=== PATIENT | male | born 1930 | race African-American/Black ===

== ENCOUNTER 2017-05-26 08:31 | Observation (INO) | payer MEDICARE ==
[2017-05-26 09:26] LABS: #Basophils 0.1 thou/uL (0.0-0.2); #Eosinphils 0.2 thou/uL (0.0-0.7); #Lymphocytes 2.1 thou/uL (1.20-3.40); #Monocytes 0.5 thou/uL (0.11-0.59); #Neutrophils 4.7 thou/uL (1.40-6.50); %Basophils 0.9 % (0.0-1.0); %Monocytes 6.1 % (0.0-10.0); %Neutrophils 62.1 % (42.0-75.0); Hemoglobin 14.5 g/dL (14.0-18.0); Mean Corpuscular HGB CONC 32.1 g/dL (32.0-36.0); Mean Corpuscular Hemoglobin 27.1 pg (27.0-31.0); Mean Corpuscular Volume 84.4 fl (80.0-94.0); Mean Platelet Volume 8.9 fL (7.4-10.4); Platelet Count 211 thou/uL (130-400); RBC Distribution Width 13.2 % (11.5-14.5); Red Blood Cell (RBC) Count 5.34 mill/uL (4.70-6.10); White Blood Cell (WBC) Count 7.6 thou/uL (4.8-10.8)
[2017-05-26 09:53] LABS: CKMB 2.6 ng/mL (0-6.6); Troponin I Less than 0.010 ng/mL (< 0.028)
[2017-05-26 09:58] LABS: ALT (SGPT) 16 U/L (8-55); AST (SGOT) 20 U/L (5-34); Albumin 4.1 g/dL (3.4-4.8); Alkaline Phosphatase 55 U/L (40-150); Anion Gap 11 mmol/L (10-20); BUN (Urea Nitrogen) 22 mg/dL (8.4-25.7); Bilirubin, Total 0.6 mg/dL (0.2-1.2); Calc. Creatinine Clearance 0 mL/min (70-130); Calcium 9.4 mg/dL (7.8-10.44); Carbon Dioxide 25 mmol/L (23-31); Chloride 107 mmol/L (98-107); Estimated GFR-MDRD 53; Globulin 2.8 g/dL (2.4-3.5); Glucose 107 mg/dL (83-110); Magnesium 1.9 mg/dL (1.6-2.6); Potassium 4.2 mmol/L (3.5-5.1); Protein, Total 6.9 g/dL (5.8-8.1); Sodium 139 mmol/L (136-145)
--- NOTE | 2017-05-26 11:13 | RAD ---
CHEST 1 VIW: HISTORY: Chest pain. COMPARISON: Syncopal episode. COMPARISON: None. FINDINGS: There is mild elevation of the left hemidiaphragm with compressive atelectasis. There is a faint per ipheral opacity in the right upper lobe also likely atelectasis or scarring. No pneumothorax. No fo ibrahima airspace consolidation. No acute osseous abnormality. IMPRESSION: Chronic findings. No acute intrathoracic abnormality. POS: [facility]
[2017-05-26 11:56] LABS: Bilirubin Negative (Negative); Blood, Urine Negative (Negative); Clarity CLEAR (Clear); Glucose, Urine (Dipstick) Negative (Negative); Leukocyte Negative (Negative); Nitrite Negative (Negative); Protein, Urine (Dipstick) Negative (Neg-Trace); Specific Gravity, Urine 1.014 (1.002-1.036); pH, Urine 6.5 (5.0-9.0)
[2017-05-26] MEDS ORDERED: Sodium Chloride 0.65% Nasal 44 ML BOT EA NARE PRN (13:40)
[2017-05-26] MEDS ORDERED: hydrALAZINE 20 MG/ML VIAL SLOW IVP PRN (13:40)
[2017-05-26] MEDS ORDERED: Milk Of Magnesia 30 ML UDCUP PO PRN (13:40)
[2017-05-26] MEDS ORDERED: Senokot 8.6 MG TAB PO PRN (13:40)
[2017-05-26] MEDS ORDERED: Chloraseptic Spray 180 ml Bottle PO PRN (13:40)
[2017-05-26] MEDS ORDERED: Acetaminophen 325 MG TAB PO PRN (13:40)
[2017-05-26] MEDS ORDERED: Ondansetron HCl/PF 4 MG/2 ML Vial IVP PRN (13:40)
[2017-05-26] MEDS ORDERED: Eucerin (Mineral Oil/Petrolatum,White) 30 gm Jar TOP PRN (13:40)
[2017-05-26] MEDS ORDERED: Zolpidem Tartrate 5 MG TAB PO PRN (13:40)
[2017-05-26] MEDS ORDERED: Nitroglycerin 0.4 MG TAB (25 Tab Bottle) SL PRN (13:40)
[2017-05-26] MEDS ORDERED: Diabetic Tussin 200 MG/10 ML UDCUP PO PRN (13:40)
[2017-05-26] MEDS ORDERED: Mag-Al 1200 mg/1200 mg/30 ML UDCUP PO PRN (13:40)
[2017-05-26] MEDS ORDERED: HYDROcodone/Acetaminophen 5/325 mg Tablet PO PRN (13:40)
[2017-05-26] MEDS ORDERED: Artificial Tears 18 DROP/0.9 ML EA EYE PRN (13:40)
[2017-05-26] MEDS ORDERED: Loratadine 10 MG TAB PO PRN (13:40)
[2017-05-26] MEDS ORDERED: Loperamide HCl 2 MG CAP PO PRN (13:40)
[2017-05-26] MEDS ORDERED: Ondansetron ODT 4 MG TAB PO PRN (13:40)
[2017-05-26] MEDS ORDERED: cloNIDine 0.1 MG TAB PO PRN (13:50)
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
[2017-05-26] MEDS: hydrALAZINE 25 MG TAB PO SCH ×2 (14:46→20:27)
--- NOTE | 2017-05-26 16:03 | ULT ---
BILATERAL CAROTID DOPPLER ULTRASOUND: History: Syncope. Comparison: None. Technique: Real-time grayscale, color, and spectral analysis of the extracranial carotid arteries and vertebral arteries were performed. FINDINGS: Antegrade flow of the vertebral arteries. There is increased velocity throughout the internal carotid artery on the left reaching 290 cm/sec with PS/ED ratio of 4.5. Right internal carotid velocities ar e normal. IMPRESSION: High grade, greater than 70%, stenosis of the left internal carotid artery. CT angiogram recommended. CODE: T POS: [facility]
[2017-05-26 16:19] LABS: Troponin I Less than 0.010 ng/mL (< 0.028)
[2017-05-26] MEDS: Mometasone/Formoterol 120 PUFF INHALER INH SCH (18:58)
[2017-05-26 19:03] LABS: Troponin I Less than 0.010 ng/mL (< 0.028)
[2017-05-26] MEDS: Famotidine 20 MG TAB PO SCH (20:27)
[2017-05-26] MEDS ORDERED: Atorvastatin Calcium 40 MG TAB PO SCH (21:00)
[2017-05-27] MEDS: Mometasone/Formoterol 120 PUFF INHALER INH SCH (08:00)
[2017-05-27] MEDS ORDERED: Tamsulosin HCl 0.4 MG CAP PO SCH (09:00)
[2017-05-27] MEDS ORDERED: Lisinopril/Hydrochlorothiazide 20 mg/12.5 mg Tablet PO SCH (09:00)
[2017-05-27] MEDS ORDERED: Multivitamin W/ Minerals 1 TAB PO SCH (09:00)
--- NOTE | 2017-05-27 09:11 | CT ---
CT ANGIO NECK WITH CONTRAST: Date: 05/27/17 TECHNIQUE: Multiple axial tomograms obtained through the neck with IV enhancement in the angiogram phase with mu ltiplanar reconstruction and 3D postprocessing. INDICATION: Carotid stenosis. Recent carotid ultrasound exam from 05/26/17 revealed evidence of significant steno sis in the left internal carotid artery. FINDINGS: There is no evidence of stenosis at the origin of the arch vessels. There is a common origin of the l eft common carotid and innominate artery. The left common carotid artery is unremarkable with mild atherosclerotic change. No stenosis in the l eft common carotid artery. There is atherosclerotic change seen at the left carotid bifurcation and left bulb and proximal ICA. Soft plaque and mild calcified plaque is present. There is high grade stenosis in the proximal left I CA beginning at its origin. The degree of stenosis appears 80% or greater according to NASCET criteri a. The left ICA above the bulb is unremarkable. There is atherosclerotic change seen in the cavernous si nus portion of left ICA; however, no focal stenosis. The right common carotid artery is unremarkable with no stenosis. There is atherosclerotic change in the right bulb and proximal right ICA. There is an area of dense calcified plaque in the right ICA ab ove this origin. There is high grade stenosis at this area of densely calcified plaque. The degree of stenosis appears critical and may approach 90% or greater at a tiny focus just beyond the densely ca lcified plaque. The ICA above this area of stenosis on the right appears unremarkable. The vertebral arteries are patent and appear unremarkable. There is a 1.5 cm low density nodule in the right lobe of the thyroid. IMPRESSION: 1. Evidence of critical stenosis in the right internal carotid artery above the bulb at a focus of d ensely calcified plaque. 2. Evidence of high grade stenosis in the proximal left ICA at its origin. CODE T. POS: [facility]
[2017-05-27] MEDS ORDERED: ISOVUE-370 76%-LOCM 1 ML ONE (09:26)
--- NOTE | 2017-05-27 10:10 | PDOC.PN ---
- Subjective Encounter Start Date: 05/27/17 Encounter Start Time: 07:30 -: old records requested/rev Patient seen and examined. No new complaints. No overnight events - Objective Resuscitation Status: Resuscitation Status FULL:Full Resuscitation MAR Reviewed: Yes Vital Signs & Weight: Vital Signs (12 hours) Temp Pulse Resp BP BP BP BP 05/27/17 08:02 98.0 F 50 L 24 H 169/78 H 05/27/17 08:00 60 16 05/27/17 07:34 98.5 F 61 16 05/27/17 04:24 185/88 H 05/27/17 04:01 98.5 F 61 16 187/72 H 185/88 H 201/88 H Pulse Ox 05/27/17 08:02 97 05/27/17 08:00 95 05/27/17 07:34 05/27/17 04:24 05/27/17 04:01 97 Weight Weight 189 lb I&O: 05/26/17 05/27/17 05/28/17 06:59 06:59 06:59 Intake Total 1080 Output Total 0 Balance 1080 Result Diagrams: 05/26/17 09:15 05/26/17 09:15 Radiology Reviewed by me: Yes (carotid us and ct angio neck) EKG Reviewed by me: Yes Phys Exam - Physical Examination Constitutional: NAD HEENT: PERRLA, moist MMs, sclera anicteric Neck: no JVD, supple Respiratory: no wheezing, no rales, no rhonchi Cardiovascular: RRR, no significant murmur, no rub Gastrointestinal: soft, non-tender, no distention, positive bowel sounds Musculoskeletal: no edema, pulses present Neurological: non-focal, normal sensation, moves all 4 limbs Lymphatic: no nodes Psychiatric: normal affect, A&O x 3 Skin: no rash, normal turgor Dx/Plan (1) Syncope Code(s): R55 - SYNCOPE AND COLLAPSE Status: Acute (2) BPH (benign prostatic hyperplasia) Code(s): N40.0 - BENIGN PROSTATIC HYPERPLASIA WITHOUT LOWER URINRY TRACT SYMP Status: Chronic (3) CKD (chronic kidney disease) stage 3, GFR 30-59 ml/min Code(s): N18.3 - CHRONIC KIDNEY DISEASE, STAGE 3 (MODERATE) Status: Chronic (4) Carotid stenosis, left Code(s): I65.22 - OCCLUSION AND STENOSIS OF LEFT CAROTID ARTERY Status: Chronic (5) Dyslipidemia Code(s): E78.5 - HYPERLIPIDEMIA, UNSPECIFIED Status: Chronic (6) Hypertension Code(s): I10 - ESSENTIAL (PRIMARY) HYPERTENSION Status: Chronic - Plan cont current plan of care, plan discussed w/ family * carotid doppler noted and then CT angio done * now consulted CT surgeon to decide if CEA needed or not * discharge decision pending consult recommendation * medication reviewed as below * symptomatic treatment Review of Systems - Review of Systems ENT: negative: Ear Pain, Ear Discharge, Nose Pain, Nose Discharge, Nose Congestion, Mouth Pain, Mouth Swelling, Throat Pain, Throat Swelling, Other Respiratory: negative: Cough, Dry, Shortness of Breath, Hemoptysis, SOB with Excertion, Pleuritic Pain, Sputum, Wheezing Cardiovascular: negative: chest pain, palpitations, orthopnea, paroxysmal nocturnal dyspnea, edema, light headedness, other Gastrointestinal: negative: Nausea, Vomiting, Abdominal Pain, Diarrhea, Constipation, Melena, Hematochezia, Other Genitourinary: negative: Dysuria, Frequency, Incontinence, Hematuria, Retention , Other Musculoskeletal: negative: Neck Pain, Shoulder Pain, Arm Pain, Back Pain, Hand Pain, Leg Pain, Foot Pain, Other Skin: negative: Rash, Lesions, Jorge Luis, Bruising, Other - Medications/Allergies Allergies/Adverse Reactions: Allergies Allergy/AdvReac Type Severity Reaction Status Date / Time No Allergy Information Allergy Verified 05/26/17 20:27 Available Medications: Current Medications Acetaminophen (Tylenol) 650 mg PO Q4H PRN PRN Reason: Headache/Fever or Pain Hydrocodone Bitart/Acetaminophen (Dellrose 5/325) 1 tab PO Q4H PRN PRN Reason: Moderate Pain (4-6) Al Hydroxide/Mg Hydroxide (Maalox) 30 ml PO Q6H PRN PRN Reason: Heartburn or Indigestion Artificial Tears (Tears Naturale) 0 drop EA EYE PRN PRN PRN Reason: Dry Eyes Aspirin (Aspirin Chewable) 81 mg PO DAILY RENEE Atorvastatin Calcium (Lipitor) 40 mg PO HS RENEE Last Admin: 05/26/17 20:27 Dose: 40 mg Clonidine (Catapres) 0.1 mg PO Q4H PRN PRN Reason: SBP Greater Than 180 Last Admin: 05/27/17 04:24 Dose: 0.1 mg Famotidine (Pepcid) 20 mg PO BID [facility] Last Admin: 05/26/17 20:27 Dose: 20 mg Guaifenesin (Robitussin Sf) 200 mg PO Q4H PRN PRN Reason: Cough Lisinopril/HCTZ (Prinizide 20-12.5) 1 tab PO DAILY [facility] Hydralazine HCl (Apresoline) 10 mg SLOW IVP Q4H PRN PRN Reason: Systolic BP > 180 Hydralazine HCl (Apresoline) 25 mg PO TID [facility] Last Admin: 05/26/17 20:27 Dose: 25 mg Iron/Minerals/Multivitamins (Theragran M) 1 tab PO DAILY [facility] Loperamide HCl (Imodium) 2 mg PO PRN PRN PRN Reason: Diarrhea/Loose Stools Loratadine (Claritin) 10 mg PO DAILYPRN PRN PRN Reason: Sinus Symptoms Magnesium Hydroxide (Milk Of Magnesium) 30 ml PO DAILYPRN PRN PRN Reason: Constipation Mineral Oil/White Petrolatum (Eucerin Cream) 0 gm TOP BIDPRN PRN PRN Reason: Dry Skin Mometasone Furoate/Formoterol Fumar (Dulera 200 Mcg/5 Mcg Inhaler) 2 puff INH BID-RT [facility] Last Admin: 05/27/17 08:00 Dose: 2 puff Nitroglycerin (Nitrostat) 0.4 mg SL Q5MIN PRN PRN Reason: Chest Pain Ondansetron HCl (Zofran Odt) 4 mg PO Q6H PRN PRN Reason: Nausea/Vomiting Ondansetron HCl (Zofran) 4 mg IVP Q6H PRN PRN Reason: Nausea/Vomiting Phenol (Chloraseptic [place] 180 Ml Bot) 0 ml PO PRN PRN PRN Reason: Sore Throat Senna (Senokot) 2 tab PO HSPRN PRN PRN Reason: Constipation Sodium Chloride ([place] Nasal [place] 0.65%) 0 ml EA NARE QIDPRN PRN PRN Reason: Nasal Congestion Sodium Chloride (Flush - Normal Saline) 10 ml IVF Q12HR [facility] Last Admin: 05/26/17 20:27 Dose: 10 ml Sodium Chloride (Flush - Normal Saline) 10 ml IVF PRN PRN PRN Reason: Saline Flush Tamsulosin HCl (Flomax) 0.4 mg PO DAILY RENEE Zolpidem Tartrate (Ambien) 5 mg PO HSPRN PRN PRN Reason: Insomnia
[2017-05-27] MEDS: Famotidine 20 MG TAB PO SCH (11:21)
[2017-05-27] MEDS: hydrALAZINE 25 MG TAB PO SCH ×2 (11:21→17:21)
[2017-05-27 13:38] VITALS: BMI 27.1
--- NOTE | 2017-05-27 14:18 | DIS ---
DATE OF ADMISSION: 05/26/2017 DATE OF DISCHARGE: 05/27/2017 PRIMARY CARE PHYSICIAN: Lelo garcia. DISCHARGE DISPOSITION: Home. PRIMARY DISCHARGE DIAGNOSES: 1. Syncope. 2. Left carotid stenosis. SECONDARY DISCHARGE DIAGNOSES: Hypertension, dyslipidemia, chronic kidney disease stage 3 and benign enlargement of prostate. PRIMARY PROCEDURE/OPERATION: None. RADIOLOGICAL INVESTIGATION: Chest x-ray normal. Carotid Doppler showed high-grade, greater than 70% stenosis in the left internal carotid artery. CT angiography showed critical stenosis in the right internal carotid artery as well as high-grade stenosis in the left internal carotid artery. SIGNIFICANT LABORATORY DATA: CBC normal. BMP normal. Creatinine 1.50. LFT normal. Cardiac enzyme s negative. Urinalysis normal. DISCHARGE MEDICATIONS: Vitamin C 500 mg p.o. at bedtime, Lipitor 40 mg p.o. at bedtime, aspirin 81 m g p.o. daily, Catapres 0.1 mg p.o. b.i.d., Avodart 0.5 mg p.o. at bedtime, Prinzide 20/12.5 one table t p.o. at bedtime, metoprolol 25 mg p.o. b.i.d., multivitamin 1 tablet p.o. daily, Flomax 0.4 mg p.o. at bedtime and multivitamin 1 tablet p.o. daily. CONTRAINDICATIONS: None. CODE STATUS: FULL CODE. INPATIENT ANESTHESIOLOGY TECHNOLOGIST: Dr. Butler, CT surgeon was consulted while in hospital. TEST RESULTS PENDING ON DISCHARGE: Echocardiography. DISCHARGE PLAN: Post hospital, the patient will follow up with software qa system specialist as well as primary care physician and Dr. Butler, for carotid endarterectomy. HOSPITAL COURSE: An 87-year-old male who was admitted by me. Please see my HPI for further details. This patient was having syncopal episode at [facility]anda[place] that was witnessed, but not explained. In the e mergency room, he was completely fine. His vitals were showing hypertensive urgency. We kept in hos pital for observation and we did syncope workup with carotid Doppler, which showed carotid stenosis a nd subsequently carotid stenosis was confirmed with CT angiography, which showed both carotid stenosi s and that is why we consulted CT surgeon and they recommended that patient will need outpatient eval uation and treatment with a carotid endarterectomy. The patient has agreed with this plan. All test results discussed with the patient and family member. The patient is seen and examined at t he bedside today. Please see my progress note from today. As cardiovascular surgeon cleared him for discharge, we are discharging this patient to home and he will follow up with the patient as an outp atient basis.
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
[2017-05-27 15:46] VITALS: BP 128/62; TEMP 98.5
--- NOTE | 2017-06-01 20:42 | EKG ---
Test Reason : Blood Pressure : / mmHG Vent. Rate : 045 BPM Atrial Rate : 045 BPM P-R Int : 178 ms QRS Dur : 088 ms QT Int : 500 ms P-R-T Axes : 026 041 105 degrees QTc Int : 432 ms Sinus bradycardia Minimal voltage criteria for LVH, may be normal variant T wave abnormality, consider lateral ischemia Abnormal ECG Confirmed by HI RIZZO ([id number]), news editor NELSON ART ([id number]) on 06/01/2017 8:41:20 PM Referred By: Confirmed By:HI RIZZO
== END 2017-05-27 18:22 | disposition home or self-care (01) ==
LOC: ERS 08:31 → 2SW 12:59
PROVIDERS: ADMIT Internal Medicine; ATTEND Internal Medicine
DX: R55 Syncope and collapse (principal); I65.22 Occlusion and stenosis of left carotid artery; N40.0 Benign prostatic hyperplasia without lower urinary tract symptoms; E78.5 Hyperlipidemia, unspecified; I12.9 Hypertensive chronic kidney disease with stage 1 through stage 4 chronic kidney disease, or unspecified chronic kidney disease; N18.3 Chronic kidney disease, stage 3 (moderate); I16.0 Hypertensive urgency; G47.00 Insomnia, unspecified; J44.9 Chronic obstructive pulmonary disease, unspecified; Z79.82 Long term (current) use of aspirin; Z79.899 Other long term (current) drug therapy
CPT/HCPCS: 70498; 71045; 80053; 81003; 82553; 83735; 84484 ×2; 85025; 93005; 93306; 93880; 94640 ×2; 97139; 99285; G0378; 36415; A4216

== ENCOUNTER 2017-08-05 13:30 | Inpatient (IN) | payer MEDICARE ==
[2017-08-06] MEDS ORDERED: CEFAZOLIN/Water 2 GM/20 ML SYRINGE ONE (12:33)
[2017-08-06] MEDS ORDERED: Midazolam HCl 2 mg/2 ml Vial ONE (12:59)
[2017-08-06] MEDS ORDERED: Fentanyl 250 MCG/5 ML VIAL ONE (12:59)
[2017-08-06] MEDS ORDERED: Heparin 5,000 UNITS/ML VIAL ONE (13:05)
[2017-08-06] MEDS ORDERED: Protamine Sulfate 50 MG/5 ML VIAL ONE (13:05)
[2017-08-06] MEDS ORDERED: HYDROcodone/Acetaminophen 5/325 mg Tablet PO PRN ×2 (13:31)
[2017-08-06] MEDS ORDERED: Acetaminophen 325 MG TAB PO PRN (13:31)
[2017-08-06] MEDS ORDERED: Ondansetron HCl/PF 4 MG/2 ML Vial IVP PRN ×2 (13:31→15:34)
[2017-08-06] MEDS ORDERED: Lidocaine 1% PF 5 ML VIAL ONE (13:34)
[2017-08-06] MEDS ORDERED: PROPOFOL 200 MG/20 ML VIAL ONE (13:34)
[2017-08-06] MEDS ORDERED: Glycopyrrolate 0.2 MG/ML 5 ML SYRINGE ONE (13:34)
[2017-08-06] MEDS ORDERED: PHENYLEPHRINE-NS 100 MCG/ML 10 ML SYRINGE ONE (13:34)
[2017-08-06] MEDS ORDERED: Labetalol 100 MG/20 ML MDV ONE (13:34)
[2017-08-06] MEDS ORDERED: ePHEDrine/0.9% NaCl/PF SYRINGE 50 mg/10 ml ONE (13:34)
[2017-08-06] MEDS ORDERED: Heparin 10,000 UNITS/ 10 ML VIAL ONE (13:34)
[2017-08-06] MEDS ORDERED: Promethazine HCl 25 MG/ML VIAL SLOW IVP PRN (15:34)
[2017-08-06] MEDS ORDERED: Promethazine HCl 25 MG/ML VIAL IM PRN (15:34)
[2017-08-06] MEDS ORDERED: EPINEPHrine 1 MG/ML AMP ONE (15:55)
[2017-08-06] MEDS ORDERED: Nitroglycerin 50 MG/250 ML BOT 250 ML ONE (16:02)
[2017-08-06] MEDS ORDERED: Enalaprilat Dihydrate 1.25 MG/ML VIAL ONE (16:04)
[2017-08-06 18:04] VITALS: BMI 27.6
[2017-08-06] MEDS: Sodium Chloride 0.9% 1,000 ML IV SCH (18:30)
[2017-08-06] MEDS ORDERED: Enalaprilat Dihydrate 1.25 MG/ML VIAL SLOW IVP PRN (20:12)
[2017-08-06] MEDS ORDERED: hydrALAZINE 20 MG/ML VIAL SLOW IVP PRN (20:12)
[2017-08-06] MEDS: cloNIDine 0.1 MG TAB PO SCH (20:38)
[2017-08-06] MEDS ORDERED: Ascorbic Acid 500 mg Chewable Tablet PO SCH (21:00)
[2017-08-06] MEDS ORDERED: Tamsulosin HCl 0.4 MG CAP PO SCH (21:00)
[2017-08-06] MEDS ORDERED: Lisinopril/Hydrochlorothiazide 20 mg/12.5 mg Tablet PO SCH (21:00)
[2017-08-06] MEDS ORDERED: Dutasteride 0.5 MG CAP PO SCH (21:00)
[2017-08-06] MEDS ORDERED: PROVENTIL INHALER 6.7 G (200 INHALATIONS) INH SCH (21:00)
--- NOTE | 2017-08-06 23:10 | OP ---
DATE OF PROCEDURE: 08/06/2017 PROCEDURE PERFORMED: Right carotid endarterectomy. PREOPERATIVE DIAGNOSIS: Bilateral carotid stenosis, right worse than left. POSTOPERATIVE DIAGNOSIS: Bilateral carotid stenosis, right worse than left. SURGEON: Jonathon Butler MD ANESTHESIA: General endotracheal anesthesia. INDICATIONS: The patient is a fairly vigorous 87-year-old man, found to have high-grade bilateral ca rotid stenoses when he presented with syncope associated with slow heart rates. His presyncopal symp toms resolved with removal of beta blockers and his heart rate came up into the 70s. He had no focal symptoms, but was deemed viable candidate and his carotid disease sufficiently severe to warrant, en darterectomy in the asymptomatic setting. FINDINGS: Plaque at the bulb and internal carotid stenosis with a focal subtotal lesion in the dista l internal carotid. PRE-SHUNT CLAMP TIME: 9 minutes. SHUNT TIME: 25 minutes. POST-SHUNT CLAMP TIME: 3 minutes. NARRATIVE REPORT: After informed consent was obtained, the patient was taken to the operating room, placed in supine position on the operating table. After the induction of general anesthesia, the pat ient's neck was extended and rotated towards the left. His right neck was then prepped and draped in sterile fashion. An oblique incision was made in the skin crease on the right neck using a scalpel and electrocautery. The dissection was carried through the subcutaneous tissue and platysma, anterom edial to the sternocleidomastoid muscle and internal jugular vein. The common carotid artery was dis sected free from that sheath and the vagus nerve and looped with a vessel loop. The dissection was c arried cephalad. The external carotid system was looped and mass with a vessel loop. The sling vess els and venous tributaries to the jugular system crossing the operative field were ligated and divide d. The dissection was carried well beyond the level of the hypoglossal nerve and digastric muscle in order to mobilize and expose the internal carotid artery beyond the palpable plaque. After adequate circulation time of heparin, the internal carotid, common carotid, and external carotid systems were sequentially occluded. A longitudinal arteriotomy was made in the distal common carotid artery and extended proximally and distally with Ross scissors. An endarterectomy plane was developed at the b [facility], plaque was transected the common carotid level, everted from the external carotid system, and br oken off distally in the internal carotid. The distal feather was tailored. The endarterectomy bed was forcefully irrigated, paying particular attention to the proximal transection and distal feather points. The distal feather tailoring was completed and then an intraluminal carotid shunt was insert ed first distally in the internal carotid and then proximally in the common carotid and aspirating on the side port of the shunt before allowing antegrade flow through it into the internal carotid syste m. The endarterectomy bed was then serially debrided, irrigated, and inspected until no more mobile debris remained. The arteriotomy was then closed from either apex with running 6-0 Prolene suture wi th about a centimeter of arteriotomy left so at the common carotid level. Shunt was clamped and otto jerod and vascular control was reestablished on the origin of the internal carotid and on the common ca rotid with vascular tapes. The remaining arteriotomy was found. The vessels are forward and backble d to allow for flushing of any air or residual debris or at the arteriotomy or into the external an tid system. The suture line was secure and antegrade flows allowed first into the external carotid a nd then into the internal carotid. The suture line was inspected for hemostasis, which appeared to b e adequate. The wound was packed off with a Ray-Kristina sponge. After a few minutes, it was reinspected . There was some bleeding coming from a small vein superolaterally in the dissection bed that was co ntrolled with Hemoclips. Hemostasis was then adequate without the reversal of heparin. The platysma was reapproximated with running 3-0 Vicryl and the skin was closed with a 5-0 Vicryl subcuticular yang ture and Steri-Strips. The wound was dressed and the patient was taken to the recovery area in stabl e condition.
[2017-08-07] MEDS: Sodium Chloride 0.9% 1,000 ML IV SCH (04:14)
--- NOTE | 2017-08-07 07:19 | DIS ---
DATE OF ADMISSION: 08/06/2017 DATE OF DISCHARGE: 08/07/2017 PRINCIPAL DIAGNOSIS: Bilateral carotid stenosis, right worse than left SECONDARY DIAGNOSIS: Hypertension. PROCEDURES: Right carotid endarterectomy. HISTORY OF PRESENT ILLNESS/HOSPITAL COURSE: The patient is a fairly vigorous 87-year-old man who had had a history of some presyncopal episodes and while visiting family had a syncopal episode in [facility] without any prodromal symptoms or any localizing symptoms. He was rather bradycardic on initial ev aluation and upon discontinuation of the beta blockers that have been used for hypertension his heart rates came up and his presyncopal and syncopal symptoms resolved. During the course of his evaluati on, though, he was found to have bilateral high grade carotid stenoses that were asymptomatic. His r ight side was worse than his left. Upon discussions with him and his family, it was felt that he was a reasonable candidate for staged bilateral carotid endarterectomies in spite of his asymptomatic st atus. He was admitted electively for a right carotid endarterectomy. Although the patient was marke dly hypertensive when he initially came out of anesthesia, once that was brought under control his bl ood pressure remained under adequate control. His initial confusion coming out of anesthesia also re solved and today on postoperative day #1, his only complaints are that of sore throat. Otherwise, he is breathing and swallowing without difficulty. His blood pressure has been under adequate control. His tongue is midline. His voice is normal. There is no significant swelling associated with his wound. His smile is symmetric. He moves all extremities to command. He will be discharged home now with a prescription for Vicodin as needed for pain and resume his home medications which include an aspirin a day. I will plan on seeing him in the office in roughly 2-3 weeks' time and when he has ad equately recovered from this procedure, we will plan on left carotid endarterectomy.
[2017-08-07 08:17] VITALS: TEMP 97.9
[2017-08-07] MEDS: cloNIDine 0.1 MG TAB PO SCH (08:24)
[2017-08-07 08:26] VITALS: BP 134/51
[2017-08-07] MEDS ORDERED: Multivit, Therapeutic 1 TAB PO SCH (09:00)
[2017-08-07] MEDS ORDERED: INTRINSIC FACT PO SCH (09:00)
[2017-08-07] MEDS ORDERED: Atorvastatin Calcium 40 MG TAB PO SCH (09:00)
[2017-08-07] MEDS ORDERED: FOLATE PO SCH (09:00)
[2017-08-07] MEDS ORDERED: VIT B12 PO SCH (09:00)
== END 2017-08-07 11:00 | disposition home or self-care (01) | DRG 39 ==
LOC: UNDOADMIN 08-06 05:32 → SURG A 08-06 05:32 → CCU 08-06 17:30
PROVIDERS: ADMIT Thoracic Surgery (Cardiothoracic Vascular Surgery); ATTEND Thoracic Surgery (Cardiothoracic Vascular Surgery)
PROC: 03CK0ZZ Extirpation of Matter from Right Internal Carotid Artery, Open Approach (ICD-10-PCS; principal; 2017-08-06)
DX: I65.23 Occlusion and stenosis of bilateral carotid arteries (principal); I10 Essential (primary) hypertension; N40.0 Benign prostatic hyperplasia without lower urinary tract symptoms; Z79.82 Long term (current) use of aspirin; Z79.899 Other long term (current) drug therapy
CPT/HCPCS: 80048; 85027; 93005; 93010; 94640; J0171; J1642; J1644; J2001; J2250; J2704; J2720; J3010; J7620

== ENCOUNTER 2017-11-05 15:15 | Inpatient (IN) | payer MEDICARE ==
[2017-11-06] MEDS ORDERED: Fentanyl 100 MCG/2 ML VIAL ONE (06:40)
[2017-11-06] MEDS ORDERED: Protamine Sulfate 50 MG/5 ML VIAL ONE (06:41)
[2017-11-06] MEDS ORDERED: Heparin 5,000 UNITS/ML VIAL ONE (06:41)
[2017-11-06] MEDS ORDERED: Protamine Sulfate 250 MG/25 ML VIAL ONE (06:41)
[2017-11-06] MEDS ORDERED: Promethazine HCl 25 MG/ML VIAL IM PRN (07:33)
[2017-11-06] MEDS ORDERED: Acetaminophen 325 MG TAB PO PRN (07:33)
[2017-11-06] MEDS ORDERED: HYDROcodone/Acetaminophen 5/325 mg Tablet PO PRN (07:33)
[2017-11-06] MEDS ORDERED: Ondansetron HCl/PF 4 MG/2 ML Vial IVP PRN (07:33)
[2017-11-06] MEDS ORDERED: PHENYLEPHRINE-NS 100 MCG/ML 10 ML SYRINGE ONE (07:53)
[2017-11-06] MEDS ORDERED: Lidocaine 1% (PF) 30 ML VIAL ONE (08:05)
[2017-11-06] MEDS ORDERED: Tamsulosin HCl 0.4 MG CAP PO SCH ×3 (10:00→21:00)
[2017-11-06] MEDS: Multivit, Therapeutic 1 TAB PO SCH (12:00)
[2017-11-06] MEDS: Atorvastatin Calcium 40 MG TAB PO SCH (12:00)
[2017-11-06] MEDS: cloNIDine 0.1 MG TAB PO SCH ×2 (13:18→20:57)
--- NOTE | 2017-11-06 13:19 | OP ---
DATE OF PROCEDURE: 11/06/2017 PROCEDURE PERFORMED: Left carotid endarterectomy. PREOPERATIVE DIAGNOSIS: Left carotid stenosis. POSTOPERATIVE DIAGNOSIS: Left carotid stenosis. SURGEON: Dr. Butler. ANESTHESIA: General endotracheal anesthesia. INDICATIONS: The patient is an active 87-year-old man who lives independently. Bilateral carotid st enosis was identified during the evaluation of syncope that proved to be related to symptomatic gisselle cardia and resolved with adjustment of his medications. After discussing treatment options with him, it was opted to proceed with staged bilateral carotid endarterectomies even though he was asymptomat ic. Given his overall good health, independent lifestyle and high grade nature of his stenoses, he i s adequately recovered from his right carotid endarterectomy to treat his more stenotic vessel. He i s now taken to the operating room for a left carotid endarterectomy. FINDINGS: Heavy ulcerated plaque at the carotid bulb and proximal internal carotid that was associat ed with high-grade stenosis. There was good ICA backbleeding. Preshunt clamp time was 10 minutes. Shunt time was 20 minutes. Post-shunt clamp time 7 minutes. NARRATIVE REPORT: After informed consent was obtained, the patient was taken to the operating room a nd placed in the supine position on the operating table. After the induction of general anesthesia, the patient's neck was extended and rotated towards the right. His left neck was then prepped and dr aped in sterile fashion. An oblique incision was made in the skin crease on the left neck using a sc alpel and electrocautery. The dissection was carried through the subcutaneous tissue, platysma anter omedial to the sternocleidomastoid muscle and the internal jugular vein. The common carotid artery w as dissected free from that sheath and the vagus nerve and looped with a vessel loop. The venous tri butaries of the jugular system including the facial vein that crossed the operative field were ligate d and divided and the dissection was carried distally beyond the level of the digastric muscle and hy poglossal nerve. The sling vessels and hence cervical callus were divided to allow for adequate expo sure of the internal carotid artery without undue to traction on the hypoglossal nerve. The external carotid and superior thyroidal arteries were looped in masses with a vessel loop. The bulb and inte rnal carotid were isolated, freeing them from the vagus nerve. The patient was heparinized. After a dequate circulation time of heparin, the internal carotid, common carotid, and external carotid syste ms were sequentially occluded. A longitudinal arteriotomy was made in the distal common carotid cristy ry with an 11 blade scalpel. It was extended proximally and distally with Ross scissors. An endart erectomy plane was developed at the bulb, plaque was transected at the common carotid with scissors. It was everted from the external carotid system and broken off distally in the internal carotid. Th e distal feather required extensive tailoring including using [place] scissors in order to achieve a n adequate feather prior to inserting the shunt. The endarterectomy bed was forcefully irrigated pay ing particular attention to that distal feather into the proximal transection point and intraluminal carotid shunt was inserted first distally in the internal carotid and then proximally in the common c arotid aspirating on a side port of the shunt for allowing antegrade flow through it into the interna l carotid system. There was some mild backbleeding around the distal limb of the shunt, which was ea sily controlled with suction. The endarterectomy bed was then serially irrigated, inspected and debr ided until no more mobile debris remained. The arteriotomy was then sewn from either apex with runni ng 6-0 Prolene suture with about a 0.5 cm of arteriotomy left, so shunt was clamped and removed and v ascular control reestablished on the internal carotid at its origin and on the common carotid vessel loops. The remaining arteriotomy was sewn. The vessels were forward and backbled to allow for flush ing of any air or residual debris out the arteriotomy or into the external carotid system. The sutur e line was secured and antegrade flow is allowed first into the external carotid and then into the in ternal carotid. The wound was inspected for gross hemostasis, which appeared to be adequate. It was then packed off with Surgicel and a Ray-Kristina sponge. After about 5 minutes, the packing was removed and the wound reinspected. Hemostasis appeared to be adequate without the reversal of heparin. The platysma was reapproximated with running 3-0 Vicryl and the skin was closed with a running 4-0 Vicryl , subcuticular suture and Steri-Strips. The wound was dressed. The patient was awakened in the oper ating room and taken to the recovery area in stable condition, moving all extremities.
[2017-11-06] MEDS: Sodium Chloride 0.9% 1,000 ML IV SCH ×2 (13:36→21:19)
[2017-11-06 13:48] VITALS: BMI 28.3
[2017-11-06] MEDS: hydrALAZINE 20 MG/ML VIAL SLOW IVP PRN (20:52)
[2017-11-06] MEDS ORDERED: Ascorbic Acid 500 mg Chewable Tablet PO SCH (21:00)
[2017-11-06] MEDS ORDERED: Lisinopril/Hydrochlorothiazide 20 mg/12.5 mg Tablet PO SCH (21:00)
[2017-11-06] MEDS ORDERED: PROVENTIL INHALER 6.7 G (200 INHALATIONS) INH SCH (21:00)
[2017-11-06] MEDS ORDERED: Dutasteride 0.5 MG CAP PO SCH (21:00)
[2017-11-06] MEDS: HYDROcodone/Acetaminophen 5/325 mg Tablet PO PRN (22:29)
[2017-11-07] MEDS: hydrALAZINE 20 MG/ML VIAL SLOW IVP PRN (02:38)
[2017-11-07] MEDS: Sodium Chloride 0.9% 1,000 ML IV SCH (05:44)
[2017-11-07] MEDS: HYDROcodone/Acetaminophen 5/325 mg Tablet PO PRN (06:01)
--- NOTE | 2017-11-07 07:17 | DIS ---
DATE OF ADMISSION: 11/06/2017 DATE OF DISCHARGE: 11/07/2017 PRINCIPAL DIAGNOSIS: Left carotid stenosis. SECONDARY DIAGNOSES: Hypertension and benign prostatic hypertrophy. PROCEDURE PERFORMED: Left carotid endarterectomy. HISTORY OF PRESENT ILLNESS AND HOSPITAL COURSE: The patient is an 87-year-old man who remains active and lives independently. Last , he had a syncopal episode that probably related to symptomati c bradycardia that has since resolved with discontinuation of his beta blockers. During that hospita lization, his evaluation included carotid studies that demonstrated significant bilateral carotid irving noses. He underwent a right carotid endarterectomy last summer with the only issue of now being retu rned to the hospital for urinary retention. He is now sufficiently recovered from his right carotid endarterectomy, did undergo a left carotid endarterectomy. A Garcia catheter was placed intraoperativ marjan and left in place overnight and removed the following morning. He did have a little bit of blood that ooze through the wound into the dressing and had some mild neck swelling associated with that, but the neck remains reasonably soft and he had no changes in his voice difficulties, swallowing or d ifficulty breathing. His tongue is midline. His smile is symmetric and he is able to move all extre mities normally. He will be discharged home now after he passes a voiding trial.
[2017-11-07] MEDS: Multivit, Therapeutic 1 TAB PO SCH (08:44)
[2017-11-07] MEDS: Atorvastatin Calcium 40 MG TAB PO SCH (08:44)
[2017-11-07] MEDS: cloNIDine 0.1 MG TAB PO SCH (08:45)
[2017-11-07 08:46] VITALS: BP 98/38
[2017-11-07] MEDS ORDERED: Cyanocobalamin (Vitamin B-12) 1,000 MCG TAB PO SCH (09:00)
[2017-11-07 13:12] VITALS: TEMP 98.3
[2017-11-07] MEDS ORDERED: Milk Of Magnesia 30 ML UDCUP PO PRN (15:25)
[2017-11-07] MEDS ORDERED: Milk Of Magnesia 30 ML UDCUP PO SCH (15:30)
== END 2017-11-07 19:50 | disposition home or self-care (01) | DRG 39 ==
LOC: SURG A 11-06 05:53 → CCU 11-06 11:54
PROVIDERS: ADMIT Thoracic Surgery (Cardiothoracic Vascular Surgery); ATTEND Thoracic Surgery (Cardiothoracic Vascular Surgery)
PROC: 03CL0ZZ Extirpation of Matter from Left Internal Carotid Artery, Open Approach (ICD-10-PCS; principal; 2017-11-06)
DX: I65.23 Occlusion and stenosis of bilateral carotid arteries (principal); I10 Essential (primary) hypertension; N40.0 Benign prostatic hyperplasia without lower urinary tract symptoms; Z79.82 Long term (current) use of aspirin
CPT/HCPCS: 71046; 80048; 85027; 93005; 93010; 94640; A4216; J0360; J1642; J1644; J2001; J2720; J3010; J7620

== ENCOUNTER 2017-11-05 15:23 | Outpatient (CLI) | payer MEDICARE ==
[2017-11-05 16:24] LABS: Hemoglobin 14.6 g/dL (14.0-18.0); Mean Corpuscular HGB CONC 32.4 g/dL (32.0-36.0); Mean Corpuscular Hemoglobin 28.2 pg (27.0-31.0); Mean Corpuscular Volume 86.9 fL (78.0-98.0); Mean Platelet Volume 9.7 fL (7.4-10.4); Platelet Count 223 thou/uL (130-400); RBC Distribution Width 13.4 % (11.5-14.5); Red Blood Cell (RBC) Count 5.17 mill/uL (4.70-6.10); White Blood Cell (WBC) Count 8.3 thou/uL (4.8-10.8)
--- NOTE | 2017-11-05 16:24 | RAD ---
CHEST TWO VIEWS: 11/05/17 HISTORY: Preoperative exam. COMPARISON: None. FINDINGS: Slight elongation of the aorta. Normal cardiac silhouette. The pulmonary vessels and hilum are normal . Costophrenic angles are clear. Elevation of the left hemidiaphragm. No masses or consolidation. No pneumothorax or osseous abnormalities. IMPRESSION: Chronic changes. No acute cardiopulmonary process. POS: [facility]
[2017-11-05 16:43] LABS: Anion Gap 15 mmol/L (10-20); BUN (Urea Nitrogen) 20 mg/dL (8.4-25.7); Calc. Creatinine Clearance 0 mL/min (70-130); Calcium 10.1 mg/dL (7.8-10.44); Carbon Dioxide 20 mmol/L (23-31); Chloride 110 mmol/L (98-107); Estimated GFR-MDRD 47; Glucose 88 mg/dL (83-110); Potassium 4.9 mmol/L (3.5-5.1); Sodium 140 mmol/L (136-145)
== END 2017-11-05 15:24 | disposition home or self-care (01) ==
LOC: LABBT 15:23
PROVIDERS: ATTEND Thoracic Surgery (Cardiothoracic Vascular Surgery)
DX: Z01.818 Encounter for other preprocedural examination (principal); I65.29 Occlusion and stenosis of unspecified carotid artery
CPT/HCPCS: 71046; 80048; 85027; 93005; 93010